=== PATIENT | female | born 1950 | race Caucasian/White ===

== ENCOUNTER 2024-02-17 15:30 | Outpatient (CLI) | payer OTHER, SELFPAY | END 2024-02-17 15:31 | disposition home or self-care (01) | PROVIDERS: PCP Family Medicine; Visit Provider Family Medicine | DX: E03.9 Hypothyroidism, unspecified (principal) | CPT/HCPCS: 80053; 80061; 82306; 82607; 84439; 84443 ==

== ENCOUNTER 2024-05-12 14:41 | Outpatient (CLI) | payer OTHER, SELFPAY ==
--- NOTE | 2024-05-12 15:00 | CRLHL7_ITS ---
For Patients: As a result of the Century Cures Act, medical imaging exams and procedure reports are released immediately into your electronic medical record. You may view this report before your referring provider. If you have questions, please contact your health care provider. BILATERAL SCREENING MAMMOGRAM WITH COMPUTER-AIDED DETECTION AND TOMOSYNTHESIS TECHNIQUE: CC and MLO views were obtained. These mammographic images have been obtained using full-field digital technique. These mammographic images were interpreted with the benefit of computer-aided detection. Breast Tomosynthesis was used in this interpretation. COMPARISON FILM: No comparison available. FINDINGS: The breasts are heterogeneously dense, which may obscure small masses IMPRESSION: There is no radiographic evidence for malignancy. ASSESSMENT: BI-RADS Category 1: Negative RECOMMENDATION: Routine screening mammogram in 1 year. A lay language report of this examination will be provided to the patient. Braydon Rodriges M.D. Diagnostic Radiologist [email or web address] LIDIA/leonel / bM/Dictated by: Braydon Rodriges MD @ 05/28/2024 11:33:00 AM (Electronically Signed)
== END 2024-05-12 14:42 | disposition home or self-care (01) ==
LOC: MAMMO 14:42
PROVIDERS: PCP Family Medicine; Visit Provider Family Medicine
DX: Z12.31 Encounter for screening mammogram for malignant neoplasm of breast (principal); R92.2 Inconclusive mammogram
CPT/HCPCS: 77063; 77067

== ENCOUNTER 2024-06-02 14:44 | Outpatient (CLI) | payer OTHER, SELFPAY ==
--- NOTE | 2024-06-02 15:00 | CRLHL7_ITS ---
For Patients: As a result of the Century Cures Act, medical imaging exams and procedure reports are released immediately into your electronic medical record. You may view this report before your referring provider. If you have questions, please contact your health care provider. DXA BONE MINERAL DENSITY STUDY Current height (in): 67.0. Weight (lb): 165.0. Menopause age: 54. Ethnicity: White. Reason for exam: Osteopenia. 1. Have you had a previous hip or vertebral fracture? No. 2. Have you had any fractures during your adult life which did not result from significant trauma (e.g., auto accident)? No. 3. Did either of your parents have a hip fracture? No. 4. Do you smoke? No. 5. Have you ever taken Glucocorticoids? No. 6. Do you have rheumatoid arthritis? No. 7. Do you have secondary osteoporosis? No. 8. Do you drink 3 or more alcoholic drinks per day? No. 9. Are you being treated for osteoporosis? No. 10. Have you ever taken any of the following medications: Actonel, Evista, Fosamax, Miacalcin, Reclast, Boniva, Forteo, HRT (i.e. estrogen/hormone therapy), Protelos, Prolia, Vitamin D, Calcium, other ??? please specify. ANSWER: No. 11. Do you have any of the following medical conditions: Anorexia or bulimia, asthma or emphysema, end stage renal disease, hyperparathyroidism, any seizure disorders, cancer, inflammatory bowel diseases, hysterectomy, other ??? please specify. ANSWER: No. 12. What was your maximum height (inches)? 68. 13. Do you perform weight bearing exercise regularly? Yes. 14. Do you regularly consume dairy products? Yes. 15. Do you drink caffeinated beverages? Yes. 16. At what age did your period start? 12. 17. Are you premenopausal? No. 18. How many full-term pregnancies have you had? 2. 19. Have you ever missed your period for more than 6 months in a row (not including or menopause)? No. TECHNIQUE: Bone mineral density study was performed using the [employer]. FINDINGS: The results of the study expressed as bone mineral density (BMD) are as follows: Lumbar spine L2 to L3: BMD: 0.912 g/cm2. T-score: -1.3. Z-score: 1.2 Neck Left: BMD: 0.665 g/cm2. T-score: -1.7. Z-score: 0.5 Right: BMD: 0.710 g/cm2. T-score: -1.3. Z-score: 0.9 Total Left: BMD: 0.838 g/cm2. T-score: -0.9. Z-score: 1.0 Right: BMD: 0.884 g/cm2. T-score: -0.5. Z-score: 1.3 IMPRESSION: Osteopenia. FRAX 10-year Fracture Risk Major Osteoporotic Fracture: 12 percent Hip Fracture: 2.6 percent Reported Risk Factors: [place] () Neck BMD = 0.665, BMI = 25.8 Sher Pak M.D. Body/Interventional Radiologist [email or web address] Transcribed: 10:43 am DW/Dictated by: Sher Pak MD @ 06/04/2024 9:04:00 AM (Electronically Signed)
== END 2024-06-02 14:45 | disposition home or self-care (01) ==
LOC: RAD 14:45
PROVIDERS: PCP Family Medicine; Visit Provider Family Medicine
DX: M85.89 Other specified disorders of bone density and structure, multiple sites (principal)
CPT/HCPCS: 77080

== ENCOUNTER 2024-12-23 16:04 | Outpatient (CLI) | payer OTHER, SELFPAY | END 2024-12-23 16:05 | disposition home or self-care (01) | PROVIDERS: PCP Family Medicine; Visit Provider Registered Nurse | DX: E03.9 Hypothyroidism, unspecified (principal); Z13.1 Encounter for screening for diabetes mellitus | CPT/HCPCS: 82947; 84439; 84443 ==

== ENCOUNTER 2025-01-27 16:30 | Outpatient (CLI) | payer OTHER, SELFPAY | END 2025-01-27 16:31 | disposition home or self-care (01) | LOC: NFLDREF 16:31 | PROVIDERS: PCP Registered Nurse; Visit Provider Registered Nurse | DX: E03.9 Hypothyroidism, unspecified (principal) | CPT/HCPCS: 84443 ==

== ENCOUNTER 2025-04-18 09:46 | Outpatient (CLI) | payer OTHER, SELFPAY | END 2025-04-18 09:47 | disposition home or self-care (01) | LOC: RAD 09:49 | PROVIDERS: PCP Registered Nurse; Visit Provider Registered Nurse | DX: R01.1 Cardiac murmur, unspecified (principal); I51.7 Cardiomegaly; I35.1 Nonrheumatic aortic (valve) insufficiency | CPT/HCPCS: 93306 ==

== ENCOUNTER 2025-07-26 12:50 | Outpatient (CLI) | payer OTHER, SELFPAY ==
--- NOTE | 2025-07-26 13:00 | CRLHL7_ITS ---
For Patients: As a result of the Century Cures Act, medical imaging exams and procedure reports are released immediately into your electronic medical record. You may view this report before your referring provider. If you have questions, please contact your health care provider. INDICATION: BILATERAL SCREENING MAMMOGRAM, ASYMPTOMATIC 74 Y/O FEMALE COMPARISON: 05/12/2024 TECHNIQUE: Digital mammogram in CC and MLO projections including computer-aided detection (CAD) and tomosynthesis. BREAST COMPOSITION: There are scattered areas of fibroglandular density. FINDINGS: No suspicious findings. ASSESSMENT: BI-RADS 2 Benign RECOMMENDATION: Annual screening mammogram. A lay language report of this examination will be provided to the patient. Dictated by: Braydon Rodriges MD @ 07/27/2025 08:32:32 (Electronically Signed)
== END 2025-07-26 12:51 | disposition home or self-care (01) ==
LOC: MAMMO 12:50
PROVIDERS: Visit Provider Registered Nurse
DX: Z12.31 Encounter for screening mammogram for malignant neoplasm of breast (principal)
CPT/HCPCS: 77063; 77067